=== PATIENT | female | born 1995 | race Hispanic/Latino ===

== ENCOUNTER 2024-11-23 08:38 | Emergency (ER) | payer OTHER ==
[~2024-11-23] VITALS: Ht 165.1 cm; Wt 77.1 kg
--- OUTSIDE RECORDS SUMMARY | 2024-11-23 08:45 | XMS ---
PreManage Notification: ANGEL DAVENPORT Security Lead Sql Developer Events No recent Security Events currently on file CRITERIA MET - [facility] [place] - 2 Visits in 30 Days CARE PROVIDERS -[place]- Dentist: Car Sales Consultant [facility] PHONE: [phone] -, [place]c- Dentist: Car Sales Consultant [facility] PHONE: [phone] [facility] Current FAMILY PHONE: [phone] Gera has no Care Guidelines for this patient. E.D. VISIT COUNT (12 MO.) 2 SOFIA [place] TOTAL 2 NOTE: Visits indicate total known visits. ED/UCC VISIT TRACKING (12 MO.) 11/23/2024 08:39 [facility] [place] TYPE: Emergency COMPLAINT: - HEADACHE 11/22/2024 15:30 [facility] [place] TYPE: Emergency COMPLAINT: - HEADACHE INPATIENT VISIT TRACKING (12 MO.) No inpatient visits to display in this time frame [email or web address]
[2024-11-23] MEDS ORDERED: KETOROLAC TROMETHAMINE 15 MG/ML VIAL IV ONE (10:00)
[2024-11-23] MEDS ORDERED: SODIUM CHLORIDE 0.9% 1,000 ML IV PRN (10:00)
[2024-11-23] MEDS ORDERED: diphenhydrAMINE HCL 50 MG/ML VIAL IV ONE (10:00)
[2024-11-23] MEDS ORDERED: METOCLOPRAMIDE HCL 10 MG/2 ML SDV IV ONE (10:00)
[2024-11-23 10:08] LABS: BASOPHILS 0.3 % (0-2); EOSINOPHILS 0.1 % (0-6); HEMATOCRIT 40.5 % (35.0-50.0); HEMOGLOBIN 14.2 g/dL (12.0-18.0); LYMPHOCYTES 19.2 % (24-44); MCH 31.4 (27-36); MCHC 35.1 g/dl (30-36); MCV 89.5 fl (81-99); MONOCYTES 6.2 % (0-12); NEUTROPHILS 74.2 % (39-80); PLATELET COUNT 193 K/uL (140-440); RBC 4.52 M/ul (4.3-5.7); RDW 12.8 (10.5-15.0)
[2024-11-23 10:24] LABS: ALBUMIN 4.1 g/dL (3.4-5.0); ALBUMIN/GLOBULIN RATIO 1.11 (1.1-2.4); ANION GAP 11.7 (7-21); BILIRUBIN, TOTAL 0.9 mg/dL (0.2-1.0); BUN/CREATININE RATIO 15.06 (6.0-28.6); CALCIUM 9.3 mg/dL (8.5-10.1); CREATININE, SERUM 0.73 mg/dL (0.55-1.02); POTASSIUM 3.7 mmol/L (3.5-5.1); PROTEIN, TOTAL 7.8 g/dL (6.4-8.2)
[2024-11-23 11:16] VITALS: BP 111/85
[2024-11-23 11:20] LABS: CORONAVIRUS COVID-19 AG NEGATIVE (NEGATIVE); INFLUENZA A AG NEGATIVE (NEGATIVE); INFLUENZA B AG NEGATIVE (NEGATIVE)
== END 2024-11-23 11:16 | disposition home or self-care (01) ==
LOC: ED 08:38
PROVIDERS: Emergency Medicine
DX: G44.209 Tension-type headache, unspecified, not intractable (principal)
CPT/HCPCS: 36415; 80053; 84703; 85025; 96374; 96375; 99283-25; J1200; J1885; J2765; J7030